=== PATIENT | female | born 1975 | race Caucasian/White ===

== ENCOUNTER 2019-05-22 09:09 | Day surgery (SDC) | payer OTHER ==
[~2019-05-22] VITALS: Ht 167.6 cm; Wt 74.5 kg
[~2019-05-22 09:09] MED LIST: ESTRADIOL1 EACH TD
--- NOTE | 2019-05-22 11:23 | NUR ---
05/22/19 1123 Maty Stephens PT COUGHING AFTER UPPER ENDO. PT. SUCTIONED ORALLY BY DR. VANG FOR SMALL AMT. CLEAR SECRETIONS
== END 2019-05-22 11:57 | disposition home or self-care (01) ==
LOC: ORSCSDS 09:09
PROVIDERS: Student in an Organized Health Care Education/Training Program
PROC: 0DBN8ZX Excision of Sigmoid Colon, Via Natural or Artificial Opening Endoscopic, Diagnostic (ICD-10-PCS; principal; 2019-05-22 11:00)
PROC: 0D7N8ZZ Dilation of Sigmoid Colon, Via Natural or Artificial Opening Endoscopic (ICD-10-PCS; principal; 2019-05-22 11:00)
PROC: 0DB68ZX Excision of Stomach, Via Natural or Artificial Opening Endoscopic, Diagnostic (ICD-10-PCS; principal; 2019-05-22 11:00)
PROC: 0DB58ZX Excision of Esophagus, Via Natural or Artificial Opening Endoscopic, Diagnostic (ICD-10-PCS; principal; 2019-05-22 11:00)
DX: R13.10 Dysphagia, unspecified (principal); K31.7 Polyp of stomach and duodenum; K21.9 Gastro-esophageal reflux disease without esophagitis; K56.699 Other intestinal obstruction unspecified as to partial versus complete obstruction; J45.909 Unspecified asthma, uncomplicated; K52.9 Noninfective gastroenteritis and colitis, unspecified; K59.09 Other constipation; Z79.899 Other long term (current) drug therapy
CPT/HCPCS: 88305; C1726; J2704; J7120